=== PATIENT | female | born 1950 | race Native Hawaiian/Other Pacific Islander ===

== ENCOUNTER 2022-06-28 14:59 | Emergency (ER) | payer OTHER ==
[~2022-06-28] VITALS: Ht 162.6 cm; Wt 136.1 kg
[2022-06-28 15:27] LABS: PLATELET COUNT 312 K/uL (152-353)
[2022-06-28 15:36] LABS: POTASSIUM 3.8 mmol/L (3.6-5.2)
[2022-06-28 16:28] VITALS: BP 135/68; TEMP 97.6
[2022-06-28] MEDS ORDERED: PRAMIPEXOLE0.25 MG PO (20:48)
[2022-06-28] MEDS ORDERED: ALPR0.2566 PO (20:50)
[2022-06-28] MEDS ORDERED: AMLODIPINE BESYLATE PO (20:51)
[2022-06-28] MEDS ORDERED: ASPIRIN 81 LOW81 MG PO (20:51)
[2022-06-28] MEDS ORDERED: LIPITOR40 MG PO (20:52)
[2022-06-28] MEDS ORDERED: [UNRECOGNIZED DRUG - OTHER] PO (20:53)
[2022-06-28] MEDS ORDERED: FLUOXETINE20 MG PO (20:55)
[2022-06-28] MEDS ORDERED: GABA300C2 PO (21:08)
[2022-06-28] MEDS ORDERED: GLIPIZIDE PO (21:11)
[2022-06-28] MEDS ORDERED: HUMULIN R100 UNIT/M SC (21:14)
[2022-06-28] MEDS ORDERED: LANTUS100 UNIT/M SC (21:15)
[2022-06-28] MEDS ORDERED: EUTHYROX50 MCG PO (21:16)
[2022-06-28] MEDS ORDERED: ROPINIROLE1 MG PO (21:17)
[2022-06-28] MEDS ORDERED: B121000 MC1 PO (21:18)
[2022-06-28] MEDS ORDERED: TRAZ50TA36 PO (21:18)
[2022-06-28] MEDS ORDERED: FLEET ENEMA RE (21:20)
[2022-06-28] MEDS ORDERED: BISACODYL LAXAT10 MG RE (21:20)
[2022-06-28] MEDS ORDERED: MAGNSUS68 PO (21:22)
== END 2022-06-28 16:28 | disposition still patient (30) ==
LOC: ED 15:03
PROVIDERS: Emergency Medicine
DX: Z04.6 Encounter for general psychiatric examination, requested by authority (principal); F91.8 Other conduct disorders; Z11.52 Encounter for screening for COVID-19; Z79.899 Other long term (current) drug therapy
CPT/HCPCS: 80053; 85027; 87635; 93005; 99283; U0003

== ENCOUNTER → 2022-09-25 | Emergency (ER) | payer OTHER ==
[~2022-09-25] VITALS: Ht 162.6 cm; Wt 107.5 kg
[~2022-09-25] MED LIST: ALPR0.2566 PO; AMLODIPINE BESYLATE PO; ASPI81TA4 PO; ASPIRIN 81 LOW81 MG PO; ATOR20TA2 PO; B121000 MC1 PO; BISACODYL LAXAT10 MG RE; DIVALPROEX125 MG PO; DULCOLAX 5MG TAB PO; EUTHYROX50 MCG PO; FAMOTIDINE20 MG PO; FLEET ENEMA RE; FLUO10CA2 PO; FLUOXETINE20 MG PO; GABA300C2 PO; GLIPIZIDE PO; GLUCOTROL XL 5MG TAB PO; HUMULIN R100 UNIT/M SC; INSU300I SC; INSUINJ20 SC; JARDIANCE10 MG PO; LANTUS100 UNIT/M SC; LEVO0.0529 PO; LIPITOR40 MG PO; MAGNSUS68 PO; NORVASC 5MG TAB PO; OLAN2.5T2 PO; PRAMIPEXOLE0.25 MG PO; ROPINIROLE0.5 MG PO; ROPINIROLE1 MG PO; TRAZ50TA36 PO; TYLENOL325 MG PO; VITAMIN B-121000 MCG PO; [UNRECOGNIZED DRUG - OTHER] PO
[2022-09-25 16:58] LABS: PLATELET COUNT 310 K/uL (152-353)
[2022-09-25 17:11] LABS: POTASSIUM 3.8 mmol/L (3.6-5.2)
[2022-09-25 19:25] VITALS: BP 114/52; TEMP 98.9
== END ==
LOC: ED 16:11
PROVIDERS: Family Medicine
DX: R46.89 Other symptoms and signs involving appearance and behavior (principal); Z00.8 Encounter for other general examination; I10 Essential (primary) hypertension; Z11.52 Encounter for screening for COVID-19
CPT/HCPCS: 80053; 85027; 87635; 93005; 99283; U0003